=== PATIENT | male | born 1960 | race Two or more races ===

== ENCOUNTER 2017-01-07 07:30 | Emergency (ER) | payer OTHER ==
[~2017-01-07] VITALS: Ht 172.7 cm; Wt 79.4 kg
[2017-01-07] MEDS ORDERED: chlordiazePOXIDE 25mg Cap ORAL ONE (08:15)
--- NOTE | 2017-01-07 08:46 | Emergency Room Report ---
History of Present Illness General Chief Complaint: Pain Source: Patient, EMS Present Illness HPI 56 YOM came in from the street with "I'm having a seizure" and "whole body pain. " Homeless. Drinker. Last drink before coming to ED. Patient states he's withdrawing. Denies trauma. Denies other medical problems. States last seizure was 3 weeks ago. Allergies: Uncoded Allergies: PENECILLIN (Allergy, Unknown, 01/07/17) Patient History Past Medical History: none Past Surgical History: none Pertinent Family History: none Social History: Reports: alcohol use Immunizations: UTD Reviewed Nursing Documentation: PMH: Agreed, PSxH: Agreed Nursing Documentation-PMH Past Medical History: No History, Except For Hx Seizures: Yes Review of Systems All Other Systems: negative except mentioned in HPI Physical Exam Vital Signs Date Time Temp Pulse Resp B/P Pulse Ox O2 Delivery O2 Flow Rate FiO2 01/07/17 07:31 98.1 112 16 140/86 99 Room Air Sp02 EP Interpretation: reviewed, abnormal General Appearance: normal inspection, well appearing, no apparent distress, alert, GCS 15, non-toxic, cachetic, other - disheveled, unkempt Head: normocephalic, atraumatic Eyes: bilateral eye EOMI, bilateral eye PERRL ENT: normal ENT inspection, hearing grossly normal, normal voice Neck: normal inspection, full range of motion, supple, no bony tend Respiratory: normal inspection, lungs clear, normal breath sounds, no respiratory distress, no retraction, no wheezing Cardiovascular #1: regular rate, rhythm, no edema Gastrointestinal: normal inspection, normal bowel sounds, non tender, soft, no guarding, no hernia Genitourinary: no CVA tenderness Musculoskeletal: normal inspection, back normal, normal range of motion, Suzie' s Sign negative Neurologic: normal inspection, alert, oriented x3, responsive, central supply technician III-XII nml as tested, motor strength/tone normal, DTRs symmetric, speech normal, other - No tremors, no tongue fasciculations Psychiatric: normal inspection, judgement/insight normal, mood/affect normal Medical Decision Making Diagnostic Impression: Primary Impression: Pain ER Course 56 YO M with "seizure" and whole body pain. VS notable for mild tachycardia. No tremors, fasiculations or other signs of ETOH withdrawal. No delerium tremens. Unlikely withdrawing if he just drank vodka. Given low dose librium and analgesia in the ED DC Last Vital Signs Date Time Temp Pulse Resp B/P Pulse Ox O2 Delivery O2 Flow Rate FiO2 01/07/17 07:31 98.1 112 16 140/86 99 Room Air Status: improved Disposition: HOME, SELF-CARE Condition: Improved Referrals: NON PHYSICIAN (PCP) Patient Instructions: Alcohol Abuse and Nutrition Additional Instructions: - Follow up with your doctor for referral to alcohol detoxication center if you are serious about quitting drinking VISHAL LI M.D. Jan 07, 2017 08:46
[2017-01-07 08:55] VITALS: BP 122/79
== END 2017-01-07 08:55 | disposition home or self-care (01) ==
LOC: EDBD 07:30 → EMR 08:11
DX: R52 Pain, unspecified (principal); R00.0 Tachycardia, unspecified; Z88.0 Allergy status to penicillin; Z59.0 Homelessness; R56.9 Unspecified convulsions
CPT/HCPCS: 99283